=== PATIENT | male | born 1975 | race Caucasian/White ===

== ENCOUNTER 2017-10-24 07:00 | Day surgery (SDC) | payer MEDICARE ==
[2017-10-23 13:28] LABS: BASOPHILS 0.3 % (0-2); EOSINOPHILS 4.3 % (0-7); HEMATOCRIT 41.1 % (42.0-54.0); HEMOGLOBIN 14.6 g/dL (13.5-17.5); IMMATURE GRANULOCYTES 0.4 % (0-5); LYMPHOCYTES 32.6 % (15-50); MCH 31.1 pg (26.0-34.0); MCHC 35.5 g/dL (31.0-37.0); MCV 87.4 fL (80.0-100.0); MEAN PLATELET VOLUME 10.5 fL (7.4-10.4); MONOCYTES 6.8 % (2-11); NEUTROPHILS 55.6 % (40-80); PLATELET COUNT 232 10x3/uL (130-400); RDW 12.2 % (11.5-14.5); WBC 9.2 10x3/uL (4.8-10.8)
[2017-10-23 14:02] LABS: CALC OSMOLALITY 275 mosm/kg (275-300); CALCIUM 9.3 mg/dL (8.5-10.1); CARBON DIOXIDE 29.4 mmol/L (21.0-32.0); CHLORIDE - SERUM 101 mmol/L (98-107); CREATININE - SERUM 0.8 mg/dL (0.6-1.3); GLUCOSE 104 mg/dL (74-106); POTASSIUM - SERUM 3.9 mmol/L (3.5-5.1); SODIUM 139 mmol/L (136-145); UREA NITROGEN 8 mg/dL (7-18); eGFR NON AFRICAN AMERICAN > 90 mL/min (90-120)
[~2017-10-24] VITALS: Ht 162.6 cm; Wt 69.4 kg
--- NOTE | ~2017-10-24 | OP ---
PATIENT NAME: ANDRA KING MEDICAL RECORD: [id number] :73 LOCATION:[facility] ADMISSION DATE: SURGEON: ZAK WELCH MD DATE OF OPERATION: 10/24/2017 PREOPERATIVE DIAGNOSES: 1. A 3 cm posterior neck sebaceous cyst. 2. History of traumatic brain injury. POSTOPERATIVE DIAGNOSES: 1. A 3 cm posterior neck sebaceous cyst. 2. History of traumatic brain injury. PROCEDURE: Excision of 3 cm posterior neck sebaceous cyst. SURGEON: Zak Welch MD METAL CNC OPERATOR: Mary Seaman APRN DESCRIPTION OF PROCEDURE: The patient was placed in the prone position and the posterior neck was prepped and draped in sterile fashion. On the left side of the neck, there was a large sebaceous cyst with an overlying old scar. A transverse incision was made overlying the cyst. Using sharp dissection and electrocautery, we came around the cyst. There was 1 small puncture site in the cyst at the extraction with some spillage of sebum. Otherwise, the wound was clear and there was no sign of any purulence. The entire cyst cavity was excised down to normal appearing fatty and muscular tissue. The wound was then irrigated out thoroughly with normal saline. Any bleeding that was found was treated with electrocautery. The subcutaneous tissues were reapproximated with interrupted 3-0 Vicryls and the skin was closed with running subcutaneous 5-0 Monocryl. The wound was then dressed with Dermabond. COMPLICATIONS: None. CONDITION: Stable. ANESTHESIA: General endotracheal and local. BLOOD LOSS: Minimal. TRANSINT:[id number] Voice Confirmation ID: [id number] DOCUMENT ID: [id number] ZAK WELCH MD at 1031 CC: GWENDOLYN ANGELES DO [id number] DICTATION DATE: 10/24/17 1156 ORTHODONTIC ASSISTANT: 10/24/17 1239 [facility] 10/24/17 [place] [address]
[~2017-10-24 07:00] MED LIST: FISH OIL 1,0001 CA1 PO; MULTI-DAY VITAM1 TAB PO; RED YEAST RICE600 MG PO; VIBRAMYCIN 100100 MG PO
[2017-10-24 07:37] VITALS: BP 114/73; Ht 162.6 cm; Wt 69.4 kg
[2017-10-24] MEDS ORDERED: HYDROCODONE-APA1 TAB PO (11:52)
== END 2017-10-24 13:55 | disposition home or self-care (01) ==
LOC: D.OPS 07:00 → D.PAN 09:50 → D.OPS 09:50
PROVIDERS: Anesthesiology
DX: L72.0 Epidermal cyst (principal); Z87.820 Personal history of traumatic brain injury; Z01.812 Encounter for preprocedural laboratory examination